=== PATIENT | female | born 1990 | race Caucasian/White ===

== ENCOUNTER 2016-11-01 09:43 | Emergency (ER) | payer OTHER ==
[~2016-11-01 09:43] MED LIST: IBUP800T23 PO
[2016-11-01 09:45] VITALS: BP 121/81; PULSE 88; RESP 20; TEMP 98.2; O2SAT 100
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
[2016-11-01] MEDS ORDERED: CYCL1TAB29 PO (10:52)
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
== END 2016-11-01 11:16 | disposition home or self-care (01) ==
LOC: PHEFT 09:43
DX: S16.1XXA Strain of muscle, fascia and tendon at neck level, initial encounter (principal); S29.019A Strain of muscle and tendon of unspecified wall of thorax, initial encounter; Z86.14 Personal history of Methicillin resistant Staphylococcus aureus infection; V43.52XA Car driver injured in collision with other type car in traffic accident, initial encounter; Y93.89 Activity, other specified; Y92.410 Unspecified street and highway as the place of occurrence of the external cause; Y99.8 Other external cause status
CPT/HCPCS: 72040; 72072; 99283